=== PATIENT | male | born 1965 | race Caucasian/White ===

== ENCOUNTER 2016-07-07 22:19 | Emergency (ER) | payer MEDICAID ==
[2016-07-07 23:55] VITALS: BP 133/88
== END 2016-07-07 23:55 | disposition home or self-care (01) ==
LOC: ED 22:19
DX: S39.012A Strain of muscle, fascia and tendon of lower back, initial encounter (principal); I10 Essential (primary) hypertension; X50.9XXA Other and unspecified overexertion or strenuous movements or postures, initial encounter; Y93.89 Activity, other specified; Y99.8 Other external cause status; Y92.89 Other specified places as the place of occurrence of the external cause
CPT/HCPCS: J1885